=== PATIENT | female | born 1980 | race Caucasian/White ===

== ENCOUNTER 2025-08-23 07:27 | Day surgery (SDC) | payer BC ==
[2025-08-23] VITALS (8 sets, daily range): BP systolic 80–106; BP diastolic 47–64; PULSE 57–86; RESP 11–17; TEMP 97.9; O2SAT 96–100
[~2025-08-23] VITALS: Ht 167.6 cm; Wt 76.0 kg
[~2025-08-23 07:27] MED LIST: APIX5TAB3 PO; ESZO3TAB44 PO; GALC120P SQ; LAMO100T65 PO; RIME75TA PO; SPIR50TA5 PO; TIRZ15PE SQ; VORT20TA PO; ringers solution, lacted 1,000 ML IV SCH; simethicone 40mg/0.6ml oral drops 15ml PO ONE
--- NOTE | 2025-08-23 08:58 | ELECTROCARDIOGRAPH REPORT ---
[facility] Test Date: 2025-08-23 Test Time: 08:03:05 Pat Name: LUIS FELIPE WILSON Department: PRE/OP CARDIOLOGY Room: Gender: F Technology Project Manager: TROY : 1980 Requested By: CHRISTOPHER ALARCON Order Number: [id number] Reading MD: Dr. DAGOBERTO Whittington Measurements Intervals [place] Rate: 72 P: 58 TN: 135 QRS: 56 QRSD: 86 T: 46 QT: 399 QTc: 437 Interpretive Statements Sinus rhythm Electronically Signed On 08-23-2025 16:52:[address] DAGOBERTO Wh[place] Please click the below link to view image of tracing.
[2025-08-23] MEDS ORDERED: midazolam 1 mg/ML 2ml injection ONE (09:07)
[2025-08-23] MEDS ORDERED: fentaNYL/PF 50MCG/1 ML 2ML syringe ONE (09:07)
[2025-08-23] MEDS ORDERED: propofol inj 20 ML IV ONE (09:09)
== END 2025-08-23 10:10 | disposition home or self-care (01) ==
LOC: PAS 07:27
PROVIDERS: ATTEND Internal Medicine Gastroenterology
DX: Z12.11 Encounter for screening for malignant neoplasm of colon (principal); K57.30 Diverticulosis of large intestine without perforation or abscess without bleeding; E11.9 Type 2 diabetes mellitus without complications; E66.9 Obesity, unspecified; G43.909 Migraine, unspecified, not intractable, without status migrainosus; K21.9 Gastro-esophageal reflux disease without esophagitis; F41.9 Anxiety disorder, unspecified; F32.A Depression, unspecified; M79.7 Fibromyalgia; Z79.01 Long term (current) use of anticoagulants; Z79.899 Other long term (current) drug therapy; Z90.710 Acquired absence of both cervix and uterus; Z96.659 Presence of unspecified artificial knee joint; Z98.890 Other specified postprocedural states; Z68.27 Body mass index [BMI] 27.0-27.9, adult; Z88.5 Allergy status to narcotic agent; Z91.040 Latex allergy status; Z88.8 Allergy status to other drugs, medicaments and biological substances
CPT/HCPCS: 45378; 82948; 93005; J2250; J2704; J3010; J7120; Z7512; A4615; A4620